=== PATIENT | female | born 1965 | race Caucasian/White ===

== ENCOUNTER 2022-04-01 16:41 | Emergency (ER) | payer BC, OTHER ==
[~2022-04-01] VITALS: Ht 167.6 cm; Wt 78.0 kg
[2022-04-01 17:08] VITALS: BP 111/65
[2022-04-01] MEDS ORDERED: LIDOCAINE HCL 1% 20ML VIAL (Pyxis) INJ INFIL ONE (18:30)
[2022-04-01] MEDS ORDERED: TETANUS, DIPHTHERIA, PERTUSSIS VAC/PF 0.5ML (>10YR OLD) IM ONE (18:30)
== END 2022-04-01 19:06 | disposition home or self-care (01) ==
LOC: ER 16:41
DX: S61.411A Laceration without foreign body of right hand, initial encounter (principal); I10 Essential (primary) hypertension; E78.00 Pure hypercholesterolemia, unspecified; W26.0XXA Contact with knife, initial encounter; Y93.G1 Activity, food preparation and clean up; Y92.010 Kitchen of single-family (private) house as the place of occurrence of the external cause
CPT/HCPCS: 12002; 99282

== ENCOUNTER 2024-02-20 21:52 | Emergency (ER) | payer MEDICAID, OTHER ==
[~2024-02-20] VITALS: Ht 154.9 cm; Wt 79.0 kg
[2024-02-20 21:55] VITALS: O2SAT 96
[2024-02-20] MEDS ORDERED: BO1 TP (22:59)
[2024-02-20 23:08] VITALS: BP 127/70; PULSE 70; RESP 15; TEMP 97.6
[2024-02-20] MEDS: TETANUS, DIPHTHERIA, PERTUSSIS VAC/PF 0.5ML (>10YR OLD) IM ONE (23:11)
[2024-02-20] MEDS: BACITRACIN ZINC OINT UDPKT TOP ONE (23:11)
== END 2024-02-20 23:16 | disposition home or self-care (01) ==
LOC: ER 21:52
DX: T21.21XA Burn of second degree of chest wall, initial encounter (principal); T31.0 Burns involving less than 10% of body surface; E78.00 Pure hypercholesterolemia, unspecified; I10 Essential (primary) hypertension; X10.2XXA Contact with fats and cooking oils, initial encounter; Y93.89 Activity, other specified; Y92.89 Other specified places as the place of occurrence of the external cause; Y99.8 Other external cause status
CPT/HCPCS: 16020; 90471; 90715; 99283

== ENCOUNTER 2024-08-13 20:17 | Emergency (ER) | payer OTHER ==
[~2024-08-13] VITALS: Ht 154.9 cm; Wt 82.0 kg
[~2024-08-13 20:17] MED LIST: BO1 TP
[2024-08-13 20:49] VITALS: O2SAT 98
[2024-08-13 22:21] LABS: BASOPHILS % 0.8 % (0.0-2.0); EOSINOPHILS % 5.3 % (0.0-5.0); HEMATOCRIT. 38.4 % (36.0-48.0); HEMOGLOBIN. 12.7 g/dL (12.0-16.0); LYMPHOCYTES % 25.2 % (20.0-50.0); MEAN CORPUSCULAR HEMOGLOBIN 28.3 pg (28.0-32.0); MEAN CORPUSCULAR VOLUME 85.8 fL (81.0-99.0); MEAN PLATELET VOLUME 8.7 fl (7.4-10.4); MONOCYTES % 5.4 % (2.0-8.0); NEUTROPHILS % 63.3 % (40.0-76.0); PLATELET 311 x1000/uL (130-400); RED BLOOD CELL COUNT 4.48 mill/uL (4.2-5.4); RED CELL DISTRIBUTION WIDTH 14.7 % (11.6-14.6); WHITE BLOOD COUNT 7.5 x1000/uL (4.5-11.0)
[2024-08-13 22:24] LABS: CHLORIDE 108 mEq/L (98-107); POTASSIUM 3.4 mEq/L (3.5-5.1); SODIUM 143 mEq/L (136-145)
[2024-08-13 22:25] LABS: CARBON DIOXIDE 30 mEq/L (21-32)
[2024-08-13 22:26] LABS: CALCIUM 9.1 mg/dL (8.7-10.4)
[2024-08-13 22:30] LABS: CREATININE 0.7 mg/dL (0.6-1.0); GLUCOSE 130 mg/dL (70-105)
[2024-08-13 22:31] LABS: UREA NITROGEN BLOOD 11 mg/dL (9-23)
[2024-08-13 22:39] LABS: TROPONIN I HIGH SENSITIVITY < 4 ng/L (3.0-34)
[2024-08-13 23:25] VITALS: BP 135/66; PULSE 89; RESP 14; TEMP 36.50292; O2SAT 98
== END 2024-08-13 23:27 | disposition home or self-care (01) ==
LOC: ER 20:17
DX: R07.9 Chest pain, unspecified (principal); E78.00 Pure hypercholesterolemia, unspecified; I10 Essential (primary) hypertension; Z98.890 Other specified postprocedural states
CPT/HCPCS: 36415; 71045; 80048; 83880; 84484; 85025; 85379; 93005; 99285